=== PATIENT | female | born 1990 | race Caucasian/White ===

== ENCOUNTER 2017-07-16 20:33 | Emergency (ER) | payer OTHER, SELFPAY ==
--- NOTE | 2017-07-16 22:44 | RAD ---
THREE VIEWS THORACIC SPINE: 07/16/17 INDICATION: Mid upper back pain for one month that has worsened today. COMPARISON: None. FINDINGS: There is mild thoracolumbar scoliosis. No acute fracture or subluxation is evident. Spinal alignment on the lateral projection is within normal limits. There is mild multilevel disc degenerative disease of the thoracic spine. Cervicothoracic junction appears within normal limits. IMPRESSION: 1. 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 2. Mild thoracolumbar scoliosis. POS: [facility] [place]
[2017-07-16] MEDS ORDERED: Ketorolac Tromethamine 60 MG/2 ML VIAL ONE (22:48)
[2017-07-16] MEDS ORDERED: Diazepam 5 MG TAB ONE (22:48)
== END 2017-07-16 23:25 | disposition home or self-care (01) ==
LOC: ERS 20:33
DX: M54.6 Pain in thoracic spine (principal); M41.9 Scoliosis, unspecified; F41.9 Anxiety disorder, unspecified; Z87.891 Personal history of nicotine dependence; X50.0XXA Overexertion from strenuous movement or load, initial encounter
CPT/HCPCS: 72072; 96372; J1885

== ENCOUNTER 2018-11-03 18:37 | Emergency (ER) | payer SELFPAY ==
[2018-11-03] MEDS ORDERED: Acetaminophen 325 MG TAB ONE (19:00)
--- NOTE | 2018-11-03 19:49 | RAD ---
EXAM: CHEST PA AND LATERAL: 11/03/18 HISTORY: Chest pain, cough, congestion, left sided arm pain. COMPARISON: 06/06/12. FINDINGS: Heart size is within normal limits. The lungs are clear. No confluent pneumonia, overt edema, or pleu ral effusion. IMPRESSION: No acute intrathoracic disease. Stable from prior study. POS: [facility]
[2018-11-03 20:24] LABS: #Basophils 0.1 thou/uL (0.0-0.2); #Eosinphils 0.1 thou/uL (0.0-0.7); #Lymphocytes 2.4 thou/uL (1.20-3.40); #Monocytes 0.5 thou/uL (0.11-0.59); %Basophils 0.8 % (0.0-1.0); %Eosinophils 1.1 % (0.0-10.0); %Lymphocytes 24.1 % (21.0-51.0); %Monocytes 4.8 % (0.0-10.0); %Neutrophils 69.3 % (42.0-75.0); Hemoglobin 12.6 g/dL (12.0-16.0); Mean Corpuscular HGB CONC 33.7 g/dL (32.0-36.0); Mean Corpuscular Hemoglobin 31.4 pg (27.0-31.0); Mean Corpuscular Volume 92.9 fL (78.0-98.0); Mean Platelet Volume 9.4 fL (7.4-10.4); Platelet Count 201 thou/uL (130-400); RBC Distribution Width 11.8 % (11.5-14.5); Red Blood Cell (RBC) Count 4.02 mill/uL (4.20-5.40); White Blood Cell (WBC) Count 10.1 thou/uL (4.8-10.8)
[2018-11-03 20:33] LABS: BHCG - Serum Negative (NEGATIVE); Pregs Control Background? CLEAR/WHITE (CLR/WHITE); Pregs Control Bar Appear? YES (CONTROL BAR)
[2018-11-03 20:40] LABS: ALT (SGPT) 13 U/L (8-55); AST (SGOT) 13 U/L (5-34); Albumin 3.6 g/dL (3.5-5.0); Alkaline Phosphatase 60 U/L (40-150); Anion Gap 11 mmol/L (10-20); BUN (Urea Nitrogen) 12 mg/dL (7.0-18.7); Bilirubin, Total 0.5 mg/dL (0.2-1.2); Calc. Creatinine Clearance 0 mL/min (70-130); Calcium 8.5 mg/dL (7.8-10.44); Carbon Dioxide 23 mmol/L (22-29); Chloride 108 mmol/L (98-107); Estimated GFR-MDRD Greater than 90; Globulin 2.7 g/dL (2.4-3.5); Glucose 139 mg/dL (70-105); Potassium 3.3 mmol/L (3.5-5.1); Protein, Total 6.3 g/dL (6.0-8.3); Sodium 139 mmol/L (136-145)
== END 2018-11-03 21:12 | disposition home or self-care (01) ==
LOC: SCSER 18:37
DX: R07.81 Pleurodynia (principal); F41.9 Anxiety disorder, unspecified; F17.220 Nicotine dependence, chewing tobacco, uncomplicated
CPT/HCPCS: 71046; 80053; 84484; 84703; 85025; 85379; 93005; 99283